=== PATIENT | male | born 1995 ===

== ENCOUNTER 2021-08-05 10:30 | Emergency (ER) | payer OTHER ==
[~2021-08-05] VITALS: Ht 188 cm; Wt 95.5 kg
[2021-08-05 10:31] VITALS: BP 149/72
[2021-08-05] MEDS: IBUPROFEN 600 MG TABLET PO ONE ×2 (10:55→11:00)
== END 2021-08-05 12:29 | disposition home or self-care (01) ==
LOC: EMS 10:30
DX: S83.421A Sprain of lateral collateral ligament of right knee, initial encounter (principal); F10.20 Alcohol dependence, uncomplicated; X50.9XXA Other and unspecified overexertion or strenuous movements or postures, initial encounter; Y93.66 Activity, soccer; Y92.322 Soccer field as the place of occurrence of the external cause; Y99.8 Other external cause status
CPT/HCPCS: 29505; 29515; 99283